=== PATIENT | female | born 1950 | race Caucasian/White ===

== ENCOUNTER → 2017-08-20 | Outpatient (CLI) | payer OTHER, MEDICARE | LOC: BMCIMAGING 08:35 | PROVIDERS: ATTEND Family Medicine | DX: M79.641 Pain in right hand (principal) ==

== ENCOUNTER → 2017-08-28 | Outpatient (CLI) | payer OTHER, MEDICARE | LOC: BMCIMAGING 13:32 | PROVIDERS: ATTEND Physician Assistant | DX: M79.89 Other specified soft tissue disorders (principal); M81.0 Age-related osteoporosis without current pathological fracture ==